=== PATIENT | male | born 1955 | race American Indian/Alaskan Native ===

== ENCOUNTER 2017-10-12 08:32 | Emergency (ER) | payer MEDICARE, OTHER ==
[~2017-10-12] VITALS: Ht 180.3 cm; Wt 81.2 kg
[~2017-10-12 08:32] MED LIST: ACCU-CHEK1 EAC1 MC; ACEROLA C500 MG PO; BABY ASPIRIN81 MG PO; CIPRO500 MG PO; CIPROFLOXACIN500 MG PO; CRESTOR20 MG PO; CRUTCH1 EACH MISC; DILTIAZEM 24HR240 MG PO; FERROUS GLUCON324 M2 PO; FERROUS GLUCON324 MG PO; FLAGYL500 MG PO; GLIPIZIDE XL10 MG PO; GLIPIZIDE XL5 MG PO; HYDROCHLOROTH12.5 M1 PO; HYDROCHLOROTHIA25 MG PO; LIPITOR10 MG PO; LISINOPRIL20 MG PO; METOPROLOL SUCC50 MG PO; NORCO 5-325 TA1 EACH PO; NOVOLOG MI100 UNIT/1 SQ; SIMVASTATIN20 MG PO; SODIUM BICARBO650 MG PO; ULTRAM50 MG PO; VICODIN 5-3001 EACH PO; VITAMIN C500 MG PO; VITAMIN D5000 UNIT PO; ZESTORETIC 20-251 EA PO
[2017-10-12] MEDS ORDERED: BACLOFEN10 MG PO (09:57)
[2017-10-12] MEDS ORDERED: NORCO 5-325 TA1 EACH PO (09:57)
== END 2017-10-12 11:17 | disposition home or self-care (01) ==
LOC: ED 08:32
DX: M54.42 Lumbago with sciatica, left side (principal); M54.41 Lumbago with sciatica, right side; I12.9 Hypertensive chronic kidney disease with stage 1 through stage 4 chronic kidney disease, or unspecified chronic kidney disease; E11.22 Type 2 diabetes mellitus with diabetic chronic kidney disease; N18.9 Chronic kidney disease, unspecified; Z87.891 Personal history of nicotine dependence; Z88.5 Allergy status to narcotic agent; Z79.899 Other long term (current) drug therapy
CPT/HCPCS: 80048; 83735; 85025; 96374; 96375; 99283; J1170; J2405

== ENCOUNTER 2017-10-14 07:25 | Emergency (ER) | payer MEDICARE, OTHER ==
[~2017-10-14] VITALS: Ht 180.3 cm; Wt 81.2 kg
[~2017-10-14 07:25] MED LIST changes: +BACLOFEN10 MG PO
[2017-10-14] MEDS ORDERED: FOLIC ACID1 MG PO (07:41)
[2017-10-14] MEDS ORDERED: DOXAZOSIN MESYLA2 MG PO (07:42)
[2017-10-14] MEDS ORDERED: VITAMIN B-1250 MCG PO (07:44)
[2017-10-14] MEDS ORDERED: CARVEDILOL6.25 MG PO (07:45)
--- NOTE | 2017-10-14 23:17 | EKG ---
[facility] [address] [facility] [place] [address] Signed Normal sinus rhythm Cannot rule out Anterior infarct , age undetermined Abnormal ECG When compared with ECG of 20-FEB-2017 22:31, No significant change was found Confirmed by ОЛЕГ JOHNSON MD ([id number]) on 10/14/2017 11:17:23 PM Electronically Signed By: ОЛЕГ JOHNSON MD 10/14/17 2317 PATIENT NAME: SONPRIYANKASOBEIDA MIRANDA Electrocardiogram DATE OF : 57 PHYSICIAN: ОЛЕГ JOHNSON MD REPORT #: [id number] REPORT IS CONFIDENTIAL AND NOT TO BE RELEASED WITHOUT AUTHORIZATION
== END 2017-10-14 10:45 | disposition home or self-care (01) ==
LOC: ED 07:25
DX: R41.82 Altered mental status, unspecified (principal); E11.22 Type 2 diabetes mellitus with diabetic chronic kidney disease; I12.0 Hypertensive chronic kidney disease with stage 5 chronic kidney disease or end stage renal disease; N18.6 End stage renal disease; Z87.891 Personal history of nicotine dependence; Z99.2 Dependence on renal dialysis; Z79.899 Other long term (current) drug therapy; Z79.84 Long term (current) use of oral hypoglycemic drugs; Z88.5 Allergy status to narcotic agent
CPT/HCPCS: 70450; 71010; 80053; 80176; 81001; 83605; 84484; 85025; 85610; 85730; 93005; 93010; 99284; G0480; J7030

== ENCOUNTER 2017-11-22 12:49 | Emergency (ER) | payer MEDICARE, OTHER ==
[~2017-11-22] VITALS: Ht 180.3 cm; Wt 81.2 kg
[~2017-11-22 12:49] MED LIST changes: +CARVEDILOL6.25 MG PO; +DOXAZOSIN MESYLA2 MG PO; +FOLIC ACID1 MG PO; +VITAMIN B-1250 MCG PO
[2017-11-22] MEDS ORDERED: AMLODIPINE BESY10 MG PO (13:08)
[2017-11-22] MEDS ORDERED: SODIUM BICARBO650 MG PO (13:09)
[2017-11-22] MEDS ORDERED: RENAGEL800 MG PO (13:10)
[2017-11-22] MEDS ORDERED: CELEXA20 MG PO (13:10)
[2017-11-22] MEDS ORDERED: METOPROLOL SUCC25 MG PO (13:11)
[2017-11-22] MEDS ORDERED: BACTRIM DS TAB1 EACH PO (13:14)
== END 2017-11-22 13:22 | disposition home or self-care (01) ==
LOC: ED 12:49
DX: L30.3 Infective dermatitis (principal); I10 Essential (primary) hypertension; E11.9 Type 2 diabetes mellitus without complications; Z88.5 Allergy status to narcotic agent; Z88.8 Allergy status to other drugs, medicaments and biological substances; Z79.899 Other long term (current) drug therapy
CPT/HCPCS: 99283

== ENCOUNTER 2018-06-11 19:14 | Emergency (ER) | payer MEDICARE, OTHER ==
[~2018-06-11 19:14] MED LIST changes: +AMLODIPINE BESY10 MG PO; +BACTRIM DS TAB1 EACH PO; +CELEXA20 MG PO; +METOPROLOL SUCC25 MG PO; +RENAGEL800 MG PO
[2018-06-11] MEDS ORDERED: LOPERAMIDE2 MG PO (23:23)
[2018-06-11] MEDS ORDERED: RENVELA800 MG PO (23:23)
[2018-06-11] MEDS ORDERED: IBUPROFEN600 MG PO (23:24)
--- NOTE | 2018-06-12 08:07 | EKG ---
[facility] [address] [facility] [place] [address] Signed Normal sinus rhythm Normal ECG When compared with ECG of 14-OCT-2017 07:51, No significant change was found Confirmed by AMANDO FERNÁNDEZ MD ([id number]) on 06/12/2018 8:07:17 AM Electronically Signed By: AMANDO FERNÁNDEZ MD 06/12/18 0807 PATIENT NAME: PRIYANKA CLINE Electrocardiogram DATE OF : 57 PHYSICIAN: AMANDO FERNÁNDEZ MD REPORT #: [id number] REPORT IS CONFIDENTIAL AND NOT TO BE RELEASED WITHOUT AUTHORIZATION
== END 2018-06-12 00:24 | disposition short-term general hospital (02) ==
LOC: ED 19:14
DX: K81.0 Acute cholecystitis (principal); E11.9 Type 2 diabetes mellitus without complications; I10 Essential (primary) hypertension; Z88.5 Allergy status to narcotic agent; Z88.8 Allergy status to other drugs, medicaments and biological substances; Z79.899 Other long term (current) drug therapy
CPT/HCPCS: 74176; 76705; 80053; 81001; 83690; 85025; 93005; 93010; 96374; 96375; 96376; 99285; J2270; J2405; J2550

== ENCOUNTER 2019-01-13 06:21 | Emergency (ER) | payer MEDICARE, OTHER ==
[~2019-01-13] VITALS: Ht 180.3 cm; Wt 81.2 kg
[~2019-01-13 06:21] MED LIST changes: +IBUPROFEN600 MG PO; +LOPERAMIDE2 MG PO; +RENVELA800 MG PO; +VITAMIN B-121000 MCG PO; -VITAMIN B-1250 MCG PO
[2019-01-13] MEDS ORDERED: ATORVASTATIN CA10 MG PO (06:39)
[2019-01-13] MEDS ORDERED: CARVEDILOL12.5 MG PO (06:40)
[2019-01-13] MEDS ORDERED: GLIPIZIDE XL2.5 MG PO (06:40)
[2019-01-13] MEDS ORDERED: NEPHRO-VITE RX1 EACH PO (06:42)
--- NOTE | 2019-01-14 16:50 | EKG ---
[facility] [address] [facility] [place] [address] Signed Normal sinus rhythm Normal ECG When compared with ECG of 11-JUN-2018 19:47, No significant change was found Confirmed by JOSE HOUSER DO ([id number]) on 01/14/2019 4:49:53 PM Electronically Signed By: JOSE HOUSER DO 01/14/19 1650 PATIENT NAME: PRIYANKA CLINE Electrocardiogram DATE OF : 57 PHYSICIAN: JOSE HOUSER DO REPORT #: [id number] REPORT IS CONFIDENTIAL AND NOT TO BE RELEASED WITHOUT AUTHORIZATION
== END 2019-01-13 08:30 | disposition home or self-care (01) ==
LOC: ED 06:21
DX: R55 Syncope and collapse (principal); E11.9 Type 2 diabetes mellitus without complications; I10 Essential (primary) hypertension; Z88.5 Allergy status to narcotic agent; Z88.8 Allergy status to other drugs, medicaments and biological substances; Z79.899 Other long term (current) drug therapy
CPT/HCPCS: 71045; 80053; 81001; 84484; 85025; 93005; 93010; 99284-25

== ENCOUNTER 2019-07-13 17:30 | Emergency (ER) | payer MEDICARE, OTHER ==
[~2019-07-13] VITALS: Ht 180.3 cm; Wt 93.4 kg
[~2019-07-13 17:30] MED LIST changes: +ATORVASTATIN CA10 MG PO; +CARVEDILOL12.5 MG PO; +GLIPIZIDE XL2.5 MG PO; +NEPHRO-VITE RX1 EACH PO
== END 2019-07-13 22:01 | disposition home or self-care (01) ==
LOC: ED 17:30
DX: S70.01XA Contusion of right hip, initial encounter (principal); R42 Dizziness and giddiness; Z99.2 Dependence on renal dialysis; I10 Essential (primary) hypertension; E11.9 Type 2 diabetes mellitus without complications; Z87.891 Personal history of nicotine dependence; Z88.5 Allergy status to narcotic agent; Z88.8 Allergy status to other drugs, medicaments and biological substances; Z79.899 Other long term (current) drug therapy; Z79.84 Long term (current) use of oral hypoglycemic drugs
CPT/HCPCS: 36415; 72170; 73700; 80053; 85025; 99284-25

== ENCOUNTER 2019-08-16 02:19 | Emergency (ER) | payer MEDICARE, OTHER ==
[~2019-08-16] VITALS: Ht 180.3 cm; Wt 93.4 kg
== END 2019-08-16 03:39 | disposition home or self-care (01) ==
LOC: ED 02:19
DX: R26.9 Unspecified abnormalities of gait and mobility (principal); E11.40 Type 2 diabetes mellitus with diabetic neuropathy, unspecified; I10 Essential (primary) hypertension; Z99.2 Dependence on renal dialysis; Z87.891 Personal history of nicotine dependence; Z88.5 Allergy status to narcotic agent; Z88.8 Allergy status to other drugs, medicaments and biological substances; Z79.84 Long term (current) use of oral hypoglycemic drugs; Z79.899 Other long term (current) drug therapy
CPT/HCPCS: 99284

== ENCOUNTER 2019-09-20 12:58 | Emergency (ER) | payer MEDICARE, OTHER ==
[~2019-09-20] VITALS: Ht 177.8 cm; Wt 92.5 kg
== END 2019-09-20 16:36 | disposition home or self-care (01) ==
LOC: ED 12:58
DX: M17.11 Unilateral primary osteoarthritis, right knee (principal); I12.9 Hypertensive chronic kidney disease with stage 1 through stage 4 chronic kidney disease, or unspecified chronic kidney disease; E11.22 Type 2 diabetes mellitus with diabetic chronic kidney disease; N18.9 Chronic kidney disease, unspecified; Z95.0 Presence of cardiac pacemaker; Z88.5 Allergy status to narcotic agent; Z88.8 Allergy status to other drugs, medicaments and biological substances; Z79.84 Long term (current) use of oral hypoglycemic drugs; Z79.899 Other long term (current) drug therapy
CPT/HCPCS: 73560; 80053; 83735; 84484; 85025; 99285-25

== ENCOUNTER 2020-03-14 19:05 | Emergency (ER) | payer MEDICARE, OTHER ==
[~2020-03-14] VITALS: Ht 177.8 cm; Wt 92.5 kg
== END 2020-03-14 21:07 | disposition short-term general hospital (02) ==
LOC: ED 19:05
DX: K92.2 Gastrointestinal hemorrhage, unspecified (principal); I10 Essential (primary) hypertension; E11.9 Type 2 diabetes mellitus without complications; Z79.899 Other long term (current) drug therapy
CPT/HCPCS: 80053; 83690; 85025; 85027; 85610; 85730; 86850; 86900; 86901; 86920; 96374; 96376; 99285-25; C9113; J7060

== ENCOUNTER 2022-04-26 15:58 | Emergency (ER) | payer MEDICARE, OTHER ==
[~2022-04-26] VITALS: Ht 177.8 cm; Wt 83.9 kg
--- NOTE | 2022-04-26 21:31 | EKG ---
[facility] [address] [facility] [place] [address] Signed Normal sinus rhythm Nonspecific T wave abnormality Prolonged QT Abnormal ECG When compared with ECG of 15-DEC-2020 12:59, QRS duration has decreased Nonspecific T wave abnormality now evident in Anterior leads Confirmed by AMANDO FERNÁNDEZ MD ([id number]) on 04/26/2022 9:31:22 PM Electronically Signed By: AMANDO FERNÁNDEZ MD 04/26/222130 PATIENT NAME: PRIYANKA CLINE RUTH Electrocardiogram DATE OF : 57 PHYSICIAN: AMANDO FERNÁNDEZ MD REPORT #: [id number] REPORT IS CONFIDENTIAL AND NOT TO BE RELEASED WITHOUT AUTHORIZATION
== END 2022-04-26 17:45 | disposition home or self-care (01) ==
LOC: ED 15:58
DX: I20.8 Other forms of angina pectoris (principal); I12.0 Hypertensive chronic kidney disease with stage 5 chronic kidney disease or end stage renal disease; E11.22 Type 2 diabetes mellitus with diabetic chronic kidney disease; N18.6 End stage renal disease; Z99.2 Dependence on renal dialysis; Z79.899 Other long term (current) drug therapy; Z88.5 Allergy status to narcotic agent; Z88.8 Allergy status to other drugs, medicaments and biological substances
CPT/HCPCS: 36415; 71045; 80053; 83735; 84484; 85025; 93005; 93010

== ENCOUNTER 2022-07-08 00:21 | Emergency (ER) | payer MEDICARE, OTHER ==
[~2022-07-08] VITALS: Ht 177.8 cm; Wt 87.1 kg
[2022-07-08] MEDS ORDERED: ONDANSETRON ODT8 MG PO (01:58)
== END 2022-07-08 02:24 | disposition home or self-care (01) ==
LOC: ED 00:21
DX: K29.00 Acute gastritis without bleeding (principal); S80.01XA Contusion of right knee, initial encounter; E11.22 Type 2 diabetes mellitus with diabetic chronic kidney disease; I12.0 Hypertensive chronic kidney disease with stage 5 chronic kidney disease or end stage renal disease; N18.6 End stage renal disease; Z99.2 Dependence on renal dialysis; W18.30XA Fall on same level, unspecified, initial encounter; Z88.5 Allergy status to narcotic agent; Z88.8 Allergy status to other drugs, medicaments and biological substances; Z79.899 Other long term (current) drug therapy
CPT/HCPCS: 36415; 73560; 80053; 83690; 85025; 96374; 99284-25; A9270; J2405

== ENCOUNTER 2022-07-19 04:42 | Emergency (ER) | payer MEDICARE, OTHER ==
[~2022-07-19] VITALS: Ht 177.8 cm; Wt 87.1 kg
[~2022-07-19 04:42] MED LIST changes: +ONDANSETRON ODT8 MG PO
--- OUTSIDE RECORDS SUMMARY | 2022-07-19 04:50 | XMS ---
PreManage Notification: PRIYANKA CLINE Security Manager Intel Events No recent Security Events currently on file CRITERIA MET - [facility] - 2 Visits in 30 Days CARE PROVIDERS Wojciech Lemus Oss Architect/Leaf Stamper 05/28/2022-Current PHONE: [phone] Shalom Lyman [facility] Current PHONE: Unknown Ortiz has no Care Guidelines for this patient. EZaire VISIT COUNT (12 MO.) [address] [place] [address] TOTAL 4 NOTE: Visits indicate total known visits. ED/UCC VISIT TRACKING (12 MO.) 07/19/2022 04:42 [facility] [place] TYPE: Emergency COMPLAINT: - HIP PAIN 07/08/2022 00:21 [facility] [place] TYPE: Emergency COMPLAINT: - NAUSEA, VOMITING DIAGNOSES: - Fall on same level, unspecified, initial encounter - Acute gastritis without bleeding - Allergy status to other drugs, medicaments and biological substances - End stage renal disease - Contusion of right knee, initial encounter - Dependence on renal dialysis - Hypertensive chronic kidney disease with stage 5 chronic kidney disease or end stage renal disease - Allergy status to narcotic agent - Type 2 diabetes mellitus with diabetic chronic kidney disease - Other assisted (current) drug therapy - Vomiting, unspecified 04/26/2022 15:[address] [facility] [address] [facility] TYPE: Emergency COMPLAINT: - CHEST PAIN DIAGNOSES: - Allergy status to other drugs, medicaments and biological substances - Other forms of angina pectoris - Other terminal makeup operator (current) drug therapy - Allergy status to narcotic agent - Type 2 diabetes mellitus with diabetic chronic kidney disease - Hypertensive chronic kidney disease with stage 5 chronic kidney disease or end stage renal disease - Dependence on renal dialysis - End stage renal disease - Precordial pain 03/18[facility]2022 14:[facility] DIAGNOSES: - Anemia, unspecified - End stage renal disease - Bruises (Non-traumatic) - Contusion of thorax, unspecified, initial encounter - Dependence on renal dialysis INPATIENT VISIT TRACKING (12 MO.) No inpatient visits to display in this time frame [id number]
== END 2022-07-19 08:11 | disposition home or self-care (01) ==
LOC: ED 04:42
DX: M25.551 Pain in right hip (principal); E11.22 Type 2 diabetes mellitus with diabetic chronic kidney disease; I12.9 Hypertensive chronic kidney disease with stage 1 through stage 4 chronic kidney disease, or unspecified chronic kidney disease; N18.9 Chronic kidney disease, unspecified; W19.XXXA Unspecified fall, initial encounter; Z99.2 Dependence on renal dialysis; Z79.899 Other long term (current) drug therapy; Z88.8 Allergy status to other drugs, medicaments and biological substances; Z88.5 Allergy status to narcotic agent
CPT/HCPCS: 73502; A9270

== ENCOUNTER 2022-09-25 11:15 | Emergency (ER) | payer MEDICARE, OTHER ==
[~2022-09-25] VITALS: Ht 177.8 cm; Wt 83.5 kg
[2022-09-25] MEDS ORDERED: HYDROCODON-ACE1 EA10 PO (14:31)
[2022-09-25] MEDS ORDERED: PREDNISONE20 MG PO (14:31)
== END 2022-09-25 14:51 | disposition home or self-care (01) ==
LOC: ED 11:15
DX: M75.52 Bursitis of left shoulder (principal); I12.0 Hypertensive chronic kidney disease with stage 5 chronic kidney disease or end stage renal disease; E11.22 Type 2 diabetes mellitus with diabetic chronic kidney disease; N18.6 End stage renal disease; Z99.2 Dependence on renal dialysis; Z88.8 Allergy status to other drugs, medicaments and biological substances; Z88.5 Allergy status to narcotic agent; Z79.899 Other long term (current) drug therapy
CPT/HCPCS: 73030; 93931; 99284-25

== ENCOUNTER 2022-10-07 13:07 | Emergency (ER) | payer MEDICARE, OTHER ==
[~2022-10-07] VITALS: Ht 177.8 cm; Wt 83.5 kg
[~2022-10-07 13:07] MED LIST changes: +HYDROCODON-ACE1 EA10 PO; +PREDNISONE20 MG PO
--- OUTSIDE RECORDS SUMMARY | 2022-10-07 13:10 | XMS ---
PreManage Notification: PRIYANKA CLINE Security Urologic Nurse Events No recent Security Events currently on file CRITERIA MET - [facility] - 2 Visits in 30 Days CARE PROVIDERS VERONICA CONNOR [facility] Current PHONE: [phone] Wojciech Lemus Transmitter Tester/In Store Banker 08/28/2022-Current PHONE: [phone] Shalom Lyman DO [facility] Current PHONE: Unknown Ortiz has no Care Guidelines for this patient. E.D. VISIT COUNT (12 MO.) 1 [facility] TOTAL 6 NOTE: Visits indicate total known visits. ED/UCC VISIT TRACKING (12 MO.) 10/07/2022 13:08 [facility] [place] TYPE: Emergency COMPLAINT: - L ARM SWELLING/PAIN 09/25/2022 11:16 [facility] [place] TYPE: Emergency COMPLAINT: - WOUND CHECK DIAGNOSES: - Bursitis of left shoulder - Other middle or intermediate school principal (current) drug therapy - End stage renal disease - Allergy status to narcotic agent - Type 2 diabetes mellitus with diabetic chronic kidney disease - Pain in left upper arm - Hypertensive chronic kidney disease with stage 5 chronic kidney disease or end stage renal disease - Essential (primary) hypertension - Allergy status to other drugs, medicaments and biological substances - Dependence on renal dialysis 07/19/2022 04:42 [facility] [place] TYPE: Emergency COMPLAINT: - HIP PAIN DIAGNOSES: - Hypertensive chronic kidney disease with stage 1 through stage 4 chronic kidney disease, or unspecified chronic kidney disease - Pain in right hip - Allergy status to other drugs, medicaments and biological substances - Chronic kidney disease, unspecified - Unspecified fall, initial encounter - Dependence on renal dialysis - Type 2 diabetes mellitus with diabetic chronic kidney disease - Other care home (current) drug therapy - Allergy status to narcotic agent 07/08/2022 00:21 [facility] [place] TYPE: Emergency COMPLAINT: - NAUSEA, VOMITING DIAGNOSES: - Acute gastritis without bleeding - Allergy [...] with diabetic chronic kidney disease - Other middle or intermediate school principal (current) drug therapy - Vomiting, unspecified - Fall on same level, unspecified, initial encounter 04/26/2022 15:[address] [facility] [place] TYPE: Emergency COMPLAINT: - CHEST PAIN DIAGNOSES: - Other forms of angina pectoris - Other middle or intermediate school principal (current) drug therapy - Allergy status to narcotic agent - Type 2 diabetes mellitus with diabetic chronic kidney disease - Hypertensive chronic kidney disease with stage 5 chronic kidney disease or end stage renal disease - Dependence on renal dialysis - End stage renal disease - Precordial pain - Allergy status to other drugs, medicaments and biological substances 03/18/2022 14:[facility] DIAGNOSES: - Anemia, unspecified - End stage renal disease - Bruises (Non-traumatic) - Contusion of thorax, unspecified, initial encounter - Dependence on renal dialysis INPATIENT VISIT TRACKING (12 MO.) No inpatient visits to display in this time frame [id number]
[2022-10-07] MEDS ORDERED: DILTIAZEM ER240 M1 PO (14:08)
[2022-10-07] MEDS ORDERED: CITALOPRAM HBR20 MG PO (14:09)
[2022-10-07] MEDS ORDERED: HYDROCODON-ACE1 EA10 PO (14:35)
[2022-10-07] MEDS ORDERED: COLACE100 MG PO (14:35)
== END 2022-10-07 14:45 | disposition home or self-care (01) ==
LOC: ED 13:07
DX: M75.52 Bursitis of left shoulder (principal); I12.0 Hypertensive chronic kidney disease with stage 5 chronic kidney disease or end stage renal disease; E11.22 Type 2 diabetes mellitus with diabetic chronic kidney disease; N18.6 End stage renal disease; Z99.2 Dependence on renal dialysis; Z88.8 Allergy status to other drugs, medicaments and biological substances; Z88.5 Allergy status to narcotic agent; Z79.899 Other long term (current) drug therapy
CPT/HCPCS: 20610; 99283-25; J3301

== ENCOUNTER 2023-01-28 17:36 | Emergency (ER) | payer MEDICARE, OTHER ==
[~2023-01-28] VITALS: Ht 177.8 cm; Wt 83.3 kg
[~2023-01-28 17:36] MED LIST changes: +ARTHRITIS PAIN150 GM; +CIALIS5 MG PO; +CITALOPRAM HBR20 MG PO; +COLACE100 MG PO; +CYCLOBENZAPRINE10 MG PO; +DILTIAZEM ER240 M1 PO; +LOKELMA5 GM PO; +PANTOPRAZOLE SO40 MG PO; +TORSEMIDE10 MG PO
== END 2023-01-28 19:50 | disposition home or self-care (01) ==
LOC: ED 17:36
DX: S00.83XA Contusion of other part of head, initial encounter (principal); S80.01XA Contusion of right knee, initial encounter; W18.39XA Other fall on same level, initial encounter; I12.0 Hypertensive chronic kidney disease with stage 5 chronic kidney disease or end stage renal disease; E11.22 Type 2 diabetes mellitus with diabetic chronic kidney disease; N18.6 End stage renal disease; Z99.2 Dependence on renal dialysis; Z88.8 Allergy status to other drugs, medicaments and biological substances; Z88.5 Allergy status to narcotic agent; Z88.1 Allergy status to other antibiotic agents; Z79.899 Other long term (current) drug therapy
CPT/HCPCS: 70450; 73560; A9270

== ENCOUNTER 2023-02-03 10:25 | Day surgery (SDC) | payer MEDICARE, OTHER ==
[~2023-02-03] VITALS: Ht 177.8 cm; Wt 81.8 kg
--- NOTE | 2023-02-03 12:26 | NUR ---
02/03/23 1226 Dorothea Parker 1220- PT ARRIVES TO PACU NONAROUSABLE TO STIMULI. RESP EVEN AND UNLABORED. OXYGEN SAT 100% ON 6L VIA MASK. CO2 IN THE MID 40'S. 1224- PT OPENS EYES TO STIMULI. INSTANTLY FALLS BACK TO SLEEP. RESP EVEN AND UNLABORED. OXYGEN SAT 100% ON 6L VIA MASK.
== END 2023-02-03 13:14 | disposition home or self-care (01) ==
LOC: DS 10:25 → OPS 10:25 → DS 12:00 → OPS 12:00
PROVIDERS: ATTEND Specialist
PROC: 079T3ZX Drainage of Bone Marrow, Percutaneous Approach, Diagnostic (ICD-10-PCS; principal; 2023-02-03 12:00)
DX: D75.89 Other specified diseases of blood and blood-forming organs (principal); Z87.891 Personal history of nicotine dependence; E11.51 Type 2 diabetes mellitus with diabetic peripheral angiopathy without gangrene; N18.6 End stage renal disease; E11.22 Type 2 diabetes mellitus with diabetic chronic kidney disease; I12.0 Hypertensive chronic kidney disease with stage 5 chronic kidney disease or end stage renal disease; Z88.5 Allergy status to narcotic agent
CPT/HCPCS: 01112; 80053; 83615; J2001; J2704; J7121

== ENCOUNTER 2023-10-18 03:51 | Emergency (ER) | payer MEDICARE, OTHER ==
[~2023-10-18] VITALS: Ht 177.8 cm; Wt 73.0 kg
--- OUTSIDE RECORDS SUMMARY | 2023-10-18 03:55 | XMS ---
PreManage Notification: PRIYANKA CLINE Security Dental Technology Advisor Events No recent Security Events currently on file CRITERIA MET - [facility] CARE PROVIDERS Marcelina Lemusmarielasai Band Scroll Saw Operator/Resolution Rep 08/28/2023-Current [facility]: [phone] [facility] PHONE: [phone] IQRA MURRAY Internal Medicine: Nephrology Current PHONE: Unknown VERONICA CONNOR Emergency Medicine Current PHONE: [phone] AMEENA MCDERMOTT [facility] Current PHONE: [phone] CHICHI MURCIA Nurse Practitioner: Family Current PHONE: Unknown Shalom Lyman DO [facility] Current PHONE: Unknown MILE ANGUIANO Nurse Practitioner: Family Current PHONE: [phone] Ortiz has no Care Guidelines for this patient. EZaire VISIT COUNT (12 MO.) 5 JULIA Arias [address] Roxy WrightAmy (Darlyn Santizo) TOTAL 8 NOTE: Visits indicate total known visits. ED/UCC VISIT TRACKING (12 MO.) 10/18/2023 03:52 [facility] [address] [place] TYPE: Emergency COMPLAINT: - DIARRHEA 05/07/2023 10:47 [facility] TYPE: Emergency DIAGNOSES: - Dependence on renal dialysis - Heart failure, unspecified - CHEST PAIN 04/23/2023 12:32 [facility] [place] TYPE: Emergency DIAGNOSES: - Chronic kidney disease, stage 4 (severe) - Nausea with vomiting, unspecified - Other specified abnormalities of plasma proteins - NAUSEA VOMITING 04/11/2023 10:40 [facility] [place] TYPE: Emergency COMPLAINT: - VOMITING DIAGNOSES: - Allergy status to narcotic agent - Allergy status to other drugs, medicaments and biological substances - Dependence on renal dialysis - End stage renal disease - Hypertensive chronic kidney disease with stage 5 chronic kidney disease or end stage renal disease - Nausea with vomiting, unspecified - Other manager long term care (current) drug therapy - Type 2 diabetes mellitus with diabetic chronic kidney disease 04/10/2023 20:05 [facility] [place] TYPE: Emergency COMPLAINT: - FOOT PAIN DIAGNOSES: - Allergy status to analgesic agent - Allergy status to narcotic agent - Allergy status to other drugs, medicaments and biological substances - Contusion of right foot, initial encounter - Contusion of right knee, initial encounter - Dependence on renal dialysis - End stage renal disease - Fall on same level from slipping, tripping and stumbling without subsequent striking against object, initial encounter - Hypertensive chronic kidney disease with stage 5 chronic kidney disease or end stage renal disease - Other correction (current) drug therapy - Pain in right knee - Type 2 diabetes mellitus with diabetic chronic kidney disease 03/13/2023 14:55 [facility] [place] TYPE: Emergency COMPLAINT: - RT KNEE PAIN,MOUTH PAIN,VISION ISSUES DIAGNOSES: - Allergy status to narcotic agent - Allergy status to other antibiotic agents - Allergy status to other drugs, medicaments and biological substances - Essential (primary) hypertension - Other manager long term care (current) drug therapy - Pain in right knee - Type 2 diabetes mellitus without complications - Unspecified fall, initial encounter 01/28/2023 17:37 [facility] [place] TYPE: Emergency COMPLAINT: - FALL DIAGNOSES: - Allergy status to narcotic agent - Allergy status to other antibiotic agents - Allergy status to other drugs, medicaments and biological substances - Contusion of other part of head, initial encounter - Contusion of right knee, initial encounter - Dependence on renal dialysis - End stage renal disease - Hypertensive chronic kidney disease with stage 5 chronic kidney disease or end stage renal disease - Other fall on same level, initial encounter - Other correction (current) drug therapy - Type 2 diabetes mellitus with diabetic chronic kidney disease 12/08/2022 12:33 [facility] (Darlyn Santizo) TYPE: Emergency DIAGNOSES: - Pain in left thigh - Knee Pain INPATIENT VISIT TRACKING (12 MO.) 05/07/2023 22:16 [facility] TYPE: Medical Surgical COMPLAINT: - CHF DIAGNOSES: 0. Hypertensive heart and chronic kidney disease with heart failure and with stage 5 chronic kidney disease, or end stage renal disease 1. Hypertensive heart and chronic kidney disease with heart failure and with stage 5 chronic kidney disease, or end stage renal disease 2. Acute on chronic diastolic (congestive) heart failure 3. Acute respiratory failure with hypoxia 4. End stage renal disease 5. Anemia in chronic kidney disease 6. Do not resuscitate 6. Type 2 diabetes mellitus with hyperglycemia 7. Type 2 diabetes mellitus with diabetic chronic kidney disease 7. Type 2 diabetes mellitus with hyperglycemia 8. Type 2 diabetes mellitus with diabetic chronic kidney disease 8. Type 2 diabetes mellitus with diabetic polyneuropathy 9. Type 2 diabetes mellitus with diabetic polyneuropathy 9. Unspecified conjunctivitis 10. Gastro-esophageal reflux disease without esophagitis 10. Unspecified conjunctivitis 11. Gastro-esophageal reflux disease without esophagitis 11. Hyperlipidemia, unspecified 12. Depression, unspecified 12. Hyperlipidemia, unspecified 13. Depression, unspecified 13. Dilated cardiomyopathy 14. Dilated cardiomyopathy 14. Do not resuscitate 15. Dependence on renal dialysis 16. Allergy status to narcotic agent 17. Allergy status to other drugs, medicaments and biological substances 18. long-term (current) use of oral hypoglycemic drugs 19. Other correction (current) drug therapy [email or web address]
[2023-10-18 04:50] LABS: BASOPHILS 0.2 % (0-2); EOSINOPHILS 1.4 % (0-6); HEMATOCRIT 46.9 % (35.0-50.0); LYMPHOCYTES 3.5 % (24-44); MCH 29.3 (27-36); MCV 91.5 fl (81-99); MONOCYTES 6.5 % (0-12); NEUTROPHILS 88.4 % (39-80); PLATELET COUNT 230 K/uL (140-440); RBC 5.13 M/ul (4.3-5.7); RDW 17.8 (10.5-15.0)
[2023-10-18 05:36] LABS: ALBUMIN 4.1 g/dL (3.4-5.0); ALBUMIN/GLOBULIN RATIO 1.14 (1.1-2.4); ANION GAP 19.6 (7-21); BILIRUBIN, TOTAL 0.5 ng/dL (0.2-1.0); BUN/CREATININE RATIO 4.89 (6.0-28.6); CALCIUM 8.6 mg/dL (8.5-10.1); CREATININE, SERUM 6.95 mg/dL (0.70-1.30); POTASSIUM 4.6 mmol/L (3.5-5.1); PROTEIN, TOTAL 7.7 g/dL (6.4-8.2)
[2023-10-18] MEDS ORDERED: ONDANSETRON ODT8 MG PO (06:28)
[2023-10-18] MEDS ORDERED: LOMOTIL TABLET1 EACH PO (06:28)
[2023-10-18 06:55] VITALS: BP 158/80
[2023-10-19 13:32] LABS: C. DIFF TOXIN B GENE TCDB,PCR Not Detected (())
== END 2023-10-18 07:00 | disposition home or self-care (01) ==
LOC: ED 03:51
PROVIDERS: Family Medicine
DX: A08.4 Viral intestinal infection, unspecified (principal); E11.9 Type 2 diabetes mellitus without complications; I10 Essential (primary) hypertension; Z88.5 Allergy status to narcotic agent; Z88.8 Allergy status to other drugs, medicaments and biological substances; Z79.899 Other long term (current) drug therapy
CPT/HCPCS: 36415; 74176; 80053; 83690; 85025; 87493; J2270; J2405; J7030

== ENCOUNTER 2023-11-25 15:50 | Emergency (ER) | payer MEDICARE, OTHER ==
[~2023-11-25] VITALS: Ht 177.8 cm; Wt 72.6 kg
[~2023-11-25 15:50] MED LIST changes: +LOMOTIL TABLET1 EACH PO
[2023-11-25 16:20] LABS: HEMOGLOBIN 11.5 g/dL (12.0-18.0); MCH 29.5 (27-36); MCV 92.3 fl (81-99); PLATELET COUNT 130 K/uL (140-440); RBC 3.91 M/ul (4.3-5.7); RDW 15.8 (10.5-15.0)
[2023-11-25 16:34] LABS: ALBUMIN 3.3 g/dL (3.4-5.0); ALBUMIN/GLOBULIN RATIO 0.87 (1.1-2.4); ANION GAP 12.3 (7-21); BILIRUBIN, TOTAL 0.8 ng/dL (0.2-1.0); BUN/CREATININE RATIO 4.7 (6.0-28.6); CALCIUM 8.7 mg/dL (8.5-10.1); CREATININE, SERUM 4.25 mg/dL (0.70-1.30); LYMPHOCYTES, MANUAL DIFF 3; MONOCYTES, MANUAL DIFF 4; NEUTROPHILS, MANUAL DIFF 93; POTASSIUM 3.3 mmol/L (3.5-5.1); PROTEIN, TOTAL 7.1 g/dL (6.4-8.2)
[2023-11-25 16:36] LABS: LACTIC ACID, BLOOD 1.1 mmol/L (0.4-2.0)
[2023-11-25 17:09] LABS: INFLUENZA B NAA NEGATIVE (NEGATIVE); RESPIRATORY SYNCYTIAL VIR NAA NEGATIVE (NEGATIVE)
[2023-11-25 20:29] VITALS: BP 139/56
== END 2023-11-25 20:10 | disposition short-term general hospital (02) ==
LOC: ED 15:50
PROVIDERS: Emergency Medicine
DX: J10.00 Influenza due to other identified influenza virus with unspecified type of pneumonia (principal); I12.0 Hypertensive chronic kidney disease with stage 5 chronic kidney disease or end stage renal disease; E11.22 Type 2 diabetes mellitus with diabetic chronic kidney disease; N18.6 End stage renal disease; Z20.822 Contact with and (suspected) exposure to COVID-19; Z99.2 Dependence on renal dialysis; Z88.8 Allergy status to other drugs, medicaments and biological substances; Z88.5 Allergy status to narcotic agent; Z79.899 Other long term (current) drug therapy
CPT/HCPCS: 71045; 80053; 83605; 85025; 87502; 96374; 99285-25; A9270; J0692; U0002

== ENCOUNTER 2023-12-20 16:56 | Emergency (ER) | payer MEDICARE, OTHER ==
[~2023-12-20] VITALS: Ht 177.8 cm; Wt 73.0 kg
--- OUTSIDE RECORDS SUMMARY | ~2023-12-20 | XMS | Continuity of Care Document ---
Demographics + + + | Address | [facility] [address] | | | [place] [address] | + + + | Preferred Language | Unknown | + + + | Marital Status | Unknown | + + + | Yarsani Affiliation | Unknown | + + + | Race | or | + + + | Ethnic Group | Unknown | + + + Author + + + | Author | [facility] | + + + | Organization | [facility] | + + + | Address | [address] | | | [place] [address] | + + + | Phone | | + + + Care Team Providers + + + + | Care Perishable Fruit Inspector Name | Role | Phone | + + + + Unavailable | Unavailable | + + + + Unavailable | Unavailable | + + + + Allergies No information. Encounters No information. Functional Status No information. Immunizations No information. Medications No information. Problems + + + + | date | description | facility | + + + + | 2023-11-26 00:39 | Influenza due to | [facility] - | | | unidentified influenza | [place] | | | virus with other | | | | respiratory manifestations | | + + + + | 2023-11-26 00:39 | End stage renal disease | [facility] - | | | | [place] | + + + + Procedures No information. Results/Labs +--------+--------+ +---------+--------+---------+ | test | date | facility | value | unit | notes | +--------+--------+ +---------+--------+---------+ + + | Result panel 1 | + + + + + +-------+---------+ + | POCT | 2023-11-29 | [facility] | 154 | mg/dl | Test results | | GLUCOMETER | 17:21 | Health | | | may be | | | | System - | | | erroneously | | | | [place] | | | low if the | | | | | | | patient is | | | | | | | severely | | | | | | | dehydrated, | | | | | | | severely | | | | | | | hypotensive, | | | | | | | in shock or | | | | | | | in a | | | | | | | hyperglycemi | | | | | | | c-hyperosmol | | | | | | | ar state | | | | | | | (with or | | | | | | | without | | | | | | | ketosis). | | | | | | | Per | | | | | | | manufacture' | | | | | | | s | | | | | | | stipulations | | | | | | | and Federal | | | | | | | | | | | | | | Regulations, | | | | | | | the [employer]re[employer] | | | | | | | glucometer | | | | | | | can not be | | | | | | | used on | | | | | | | patients | | | | | | | with | | | | | | | hematocrits | | | | | | | less than | | | | | | | 15% or | | | | | | | greater than | | | | | | | 65%. | | | | | | | Glucose | | | | | | | testing must | | | | | | | be sent to | | | | | | | the | | | | | | | laboratory | | | | | | | for these | | | | | | | patients. | + + + +-------+---------+ + + + | Result panel 2 | + + + + + +------+---------+ + | POCT | 2023-11-29 | [facility] | 99 | mg/dl | Test results | | GLUCOMETER | 22:42 | Health | | | may be | | | | System - | | | erroneously | | | | [place] | | | low if the | | | | | | | patient is | | | | | | | severely | | | | | | | dehydrated, | | | | | | | severely | | | | | | | hypotensive, | | | | | | | in shock or | | | | | | | in a | | | | | | | hyperglycemi | | | | | | | c-hyperosmol | | | | | | | ar state | | | | | | | (with or | | | | | | | without | | | | | | | ketosis). | | | | | | | Per | | | | | | | manufacture' | | | | | | | s | | | | | | | stipulations | | | | | | | and Federal | | | | | | | | | | | | | | Regulations, | | | | | | | the [employer] | | | | | | | glucometer | | | | | | | can not be | | | | | | | used on | | | | | | | patients | | | | | | | with | | | | | | | hematocrits | | | | | | | less than | | | | | | | 15% or | | | | | | | greater than | | | | | | | 65%. | | | | | | | Glucose | | | | | | | testing must | | | | | | | be sent to | | | | | | | the | | | | | | | laboratory | | | | | | | for these | | | | | | | patients. | + + + +------+---------+ + + + | Result panel 3 | + + + + + +------+---------+ + | POCT | 2023-11-30 | [facility] | 94 | mg/dl | Test results | | GLUCOMETER | 05:16 | Health | | | may be | | | | System - | | | erroneously | | | | [place] | | | low if the | | | | | | | patient is | | | | | | | severely | | | | | | | dehydrated, | | | | | | | severely | | | | | | | hypotensive, | | | | | | | in shock or | | | | | | | in a | | | | | | | hyperglycemi | | | | | | | c-hyperosmol | | | | | | | ar state | | | | | | | (with or | | | | | | | without | | | | | | | ketosis). | | | | | | | Per | | | | | | | manufacture' | | | | | | | s | | | | | | | stipulations | | | | | | | and Federal | | | | | | | | | | | | | | Regulations, | | | | | | | the [employer] | | | | | | | glucometer | | | | | | | can not be | | | | | | | used on | | | | | | | patients | | | | | | | with | | | | | | | hematocrits | | | | | | | less than | | | | | | | 15% or | | | | | | | greater than | | | | | | | 65%. | | | | | | | Glucose | | | | | | | testing must | | | | | | | be sent to | | | | | | | the | | | | | | | laboratory | | | | | | | for these | | | | | | | patients. | + + + +------+---------+ + Social History +--------+ + + | date | description | facility | +--------+ + + Vital Signs No information."
--- OUTSIDE RECORDS SUMMARY | ~2023-12-20 | XMS | Continuity of Care Document ---
Demographics + + + | Address | [facility] [address] | | | [place] [address] | + + + | Preferred Language | Unknown | + + + | Marital Status | Unknown | + + + | Gnosticism Affiliation | Unknown | + + + | Race | or | + + + | Ethnic Group | Unknown | + + + Author + + + | Author | [facility] | + + + | Organization | [facility] | + + + | Address | [address] [facility] [facility] | | | [place] [address] | + + + | Phone | | + + + Care Team Providers + + + + | Care Rehabilitation Worker Name | Role | Phone | + [...] 2023-11-26 00:39 | Influenza due to | [facility] - | | | unidentified influenza | [place] | | | virus with other | | | | respiratory manifestations | | + + + + | 2023-11-26 00:39 | End stage renal disease | [facility] - | | | | [place] [...]
--- OUTSIDE RECORDS SUMMARY | 2023-12-20 17:02 | XMS ---
PreManage Notification: PRIYANKA CLINE Security Employee Communications Specialist Events No recent Security Events currently on file CRITERIA MET - [facility] - 2 Visits in 30 Days CARE PROVIDERS Wojciech Lemus Universal Banker/Weld Lay Out Worker 11/28/2023-Current PHONE: [phone] [facility] 04/11/2023- PHONE: [phone] IQRA MURRAY Internal Medicine: Nephrology Current PHONE: Unknown VERONICA CONNOR Emergency Medicine Current PHONE: [phone] CHICHI MURCIA Nurse Practitioner: Family Current PHONE: Unknown Shalom Lyman DO Family Medicine Current PHONE: Unknown [facility] Clinic/Center: [facility] Current \F\ [facility] PHONE: [phone] MILE ANGUIANO Nurse Practitioner: Family Current PHONE: Unknown Ortiz has no Care Guidelines for this patient. E.DAmy VISIT COUNT (12 MO.) [address] [facility] [address] [facility] [address] [facility] TOTAL 9 NOTE: Visits indicate total known visits. ED/UCC VISIT TRACKING (12 MO.) 12/20/2023 16:56 [facility] [place] TYPE: Emergency COMPLAINT: - FALL 11/25/2023 15:50 [facility] [place] TYPE: Emergency COMPLAINT: - FEVER DIAGNOSES: - Allergy status to narcotic agent - Allergy status to other drugs, medicaments and biological substances - Contact with and (suspected) exposure to COVID-19 - Dependence on renal dialysis - End stage renal disease - Fever, unspecified - Hypertensive chronic kidney disease with stage 5 chronic kidney disease or end stage renal disease - Influenza due to other identified influenza virus with unspecified type of pneumonia - Other retirement (current) drug therapy - Type 2 diabetes mellitus with diabetic chronic kidney disease 10/18/2023 03:52 [facility] [place] TYPE: Emergency COMPLAINT: - DIARRHEA DIAGNOSES: - Allergy status to narcotic agent - Allergy status to other drugs, medicaments and biological substances - Essential (primary) hypertension - Other retirement (current) drug therapy - Type 2 diabetes mellitus without complications - Viral intestinal infection, unspecified - Vomiting, unspecified 05/07/2023 10:47 [facility] [place] TYPE: Emergency DIAGNOSES: - Dependence on renal dialysis - Heart failure, unspecified - CHEST PAIN 04/23/2023 12:32 [facility] [place] TYPE: Emergency DIAGNOSES: - Chronic kidney [...] - Nausea with vomiting, unspecified - Other intermediate teacher (current) drug therapy - Type 2 diabetes [...] or end stage renal disease - Other intermediate teacher (current) drug therapy - Pain in right knee - Type 2 diabetes mellitus with diabetic chronic kidney disease 03/13/2023 14:55 [facility] [place] TYPE: Emergency COMPLAINT: - RT KNEE PAIN,MOUTH PAIN,VISION ISSUES DIAGNOSES: - Allergy status to narcotic agent - Allergy status to other antibiotic agents - Allergy status to other drugs, medicaments and biological substances - Essential (primary) hypertension - Other retirement (current) drug therapy - Pain in right [...] on same level, initial encounter - Other retirement (current) drug therapy - Type 2 diabetes mellitus with diabetic chronic kidney disease INPATIENT VISIT TRACKING (12 MO.) 11/26/2023 00:39 [facility] DIAGNOSES: - End stage renal disease - Influenza due to unidentified influenza virus with other respiratory manifestations - Renal failure 10/26/2023 08:58 [facility] TYPE: Inpatient DIAGNOSES: - Anemia, unspecified - End stage renal disease - Essential (primary) hypertension - Gastro-esophageal reflux disease without esophagitis - Hyperkalemia - Noninfective gastroenteritis and colitis, unspecified 05/07/2023 22:16 [facility] Medical [facility] COMPLAINT: - CHF DIAGNOSES: [...] other drugs, medicaments and biological substances 18. retirement (current) use of oral hypoglycemic drugs 19. Other retirement (current) drug therapy [email or web address]
[2023-12-20 18:26] VITALS: BP 119/54
== END 2023-12-20 18:26 | disposition home or self-care (01) ==
LOC: ED 16:56
DX: S00.03XA Contusion of scalp, initial encounter (principal); S83.91XA Sprain of unspecified site of right knee, initial encounter; W18.30XA Fall on same level, unspecified, initial encounter; N19 Unspecified kidney failure; E11.9 Type 2 diabetes mellitus without complications; I10 Essential (primary) hypertension; Z88.8 Allergy status to other drugs, medicaments and biological substances; Z88.5 Allergy status to narcotic agent; Z79.899 Other long term (current) drug therapy
CPT/HCPCS: 70450; 73560; 99284-25

== ENCOUNTER 2024-05-06 08:02 | Emergency (ER) | payer MEDICARE, OTHER ==
[~2024-05-06] VITALS: Ht 177.8 cm; Wt 74.0 kg
--- OUTSIDE RECORDS SUMMARY | 2024-05-06 08:05 | XMS ---
PreManage Notification: PRIYANKA CLINE Security Pneumatic Drum Sander Events No recent Security Events currently on file CRITERIA MET - PDMP CARE PROVIDERS Marcelina Lemusmarielasai Utility Bill Collection Clerk/Loading Unit Operator Seating 01/27/2024-Current [facility]: [phone] [facility] PHONE: [phone] IQRA MURRAY Internal Medicine: Nephrology Current PHONE: Unknown VERONICA CONNOR Emergency Medicine Current PHONE: [phone] CHICHI MURCIA Nurse Practitioner: Family Current PHONE: Unknown Shalom Lyman DO Family Medicine Current PHONE: Unknown [facility] Clinic/Center: [facility] Current \F\ [facility] PHONE: [phone] MILE ANGUIANO Nurse Practitioner: Family Current PHONE: Unknown [facility] has no Care Guidelines for this patient. E.Deonte VISIT COUNT (12 MO.) 4 [facility] [facility] T[facility] NOTE: Visits indicate total known visits. ED/UCC VISIT TRACKING (12 MO.) 05/06/2024 08:02 JULIA [facility]cl[facility] [place] TYPE: Emergency COMPLAINT: - L SHOULDER PAIN 12/20/2023 16:56 JUL[facility]cl[facility] [place] TYPE: Emergency COMPLAINT: - FALL DIAGNOSES: - Allergy status to narcotic agent - Allergy status to other drugs, medicaments and biological substances - Contusion of scalp, initial encounter - Essential (primary) hypertension - Fall on same level, unspecified, initial encounter - Other terminal manager (current) drug therapy - Pain in right knee - Sprain of unspecified site of right knee, initial encounter - Type 2 diabetes mellitus without complications - Unspecified kidney failure 11/25/2023 15:50 JULIA Mclain [place] TYPE: Emergency [...] with unspecified type of pneumonia - Other skilled nursing (current) drug therapy - Type 2 diabetes mellitus with diabetic chronic kidney disease 10/18/2023 03:52 JUL[facility]cl[facility] [place] TYPE: Emergency COMPLAINT: - DIARRHEA DIAGNOSES: - Allergy status to narcotic agent - Allergy status to other drugs, medicaments and biological substances - Essential (primary) hypertension - Other terminal manager (current) drug therapy - Type 2 diabetes mellitus without complications - Viral intestinal infection, unspecified - Vomiting, unspecified 05/07/2023 10:47 [facility] [place] TYPE: Emergency DIAGNOSES: - Dependence on renal dialysis - Heart failure, unspecified - CHEST PAIN INPATIENT VISIT TRACKING (12 MO.) 11/26/2023 00:39 [facility] [place] TYPE: Medical Surgical DIAGNOSES: - End stage renal disease - Influenza due to unidentified influenza virus with other respiratory manifestations - Renal failure [facility]AGNOSES: - Anemia, unspecified - End stage renal disease - Essential (primary) hypertension - Gastro-esophageal reflux disease without esophagitis - Hyperkalemia - Noninfective gastroenteritis and colitis, unspecified 05/07/2023 22:16 [facility] [place] TYPE: Medical Surgical COMPLAINT: - CHF DIAGNOSES: [...] other drugs, medicaments and biological substances 18. long term care pharmacist (current) use of oral hypoglycemic drugs 19. Other skilled nursing (current) drug therapy [email or web address]
[2024-05-06 10:22] VITALS: BP 173/68
== END 2024-05-06 10:22 | disposition home or self-care (01) ==
LOC: ED 08:02
DX: M25.512 Pain in left shoulder (principal); W18.11XA Fall from or off toilet without subsequent striking against object, initial encounter; I10 Essential (primary) hypertension; E11.9 Type 2 diabetes mellitus without complications; Z88.8 Allergy status to other drugs, medicaments and biological substances; Z88.5 Allergy status to narcotic agent; Z79.899 Other long term (current) drug therapy
CPT/HCPCS: 73030; 99283-25

== ENCOUNTER 2024-06-04 20:57 | Emergency (ER) | payer MEDICARE, OTHER ==
[~2024-06-04] VITALS: Ht 177.8 cm; Wt 69.8 kg
[~2024-06-04 20:57] MED LIST changes: +VITAMIN D3125 MC2 PO
[2024-06-04] MEDS ORDERED: GABAPENTIN100 MG PO (21:09)
[2024-06-04] MEDS ORDERED: METOPROLOL SUCC25 MG PO (21:09)
[2024-06-04] MEDS ORDERED: PROZAC40 MG PO (21:10)
[2024-06-04] MEDS ORDERED: ONDANSETRON HCL4 MG PO (21:10)
[2024-06-04] MEDS ORDERED: diazePAM 10 MG/2 ML SYR IV ONE (22:15)
--- OUTSIDE RECORDS SUMMARY | 2024-06-04 22:21 | XMS ---
PreManage Notification: PRIYANKA CLINE Security Assistant Professor Of Life Sciences Events No recent Security Events currently on file CRITERIA MET - [facility] - [facility] - 2 Visits in 30 Days CARE PROVIDERS Wojciech Lemus Production Control Supervisor/Insulation Estimator 01/27/2024-Current PHONE: [phone] [facility] 04/11/2023-[facility] PHONE: [phone] IQRA MURRAY Internal Medicine: Nephrology Current PHONE: Unknown VERONICA CONNOR Emergency Medicine Current PHONE: [phone] RYAN WHEELER Internal Medicine Current [facility] PHONE: [phone] Shalom Lyman DO Family Medicine Current PHONE: Unknown [facility] Clinic/Center: [facility] Current \F\ [facility] PHONE: [phone] MILE ANGUIANO Nurse Practitioner: Family Current PHONE: Unknown [facility] has no Care Guidelines for this patient. E.Deonte VISIT COUNT (12 MO.) 5 JULIA Barrios [employer] TOTAL 6 NOTE: Visits indicate total known visits. ED/UCC VISIT TRACKING (12 MO.) 06/04/2024 20:58 JUL[facility]cl[facility] [place] TYPE: Emergency COMPLAINT: - URINARY PROBLEMS 05/08/2024 20:27 [facility] [place] TYPE: Emergency DIAGNOSES: - Other specified abnormal findings of blood chemistry - Strain of muscle, fascia and tendon of right hip, initial encounter - Weakness - Fall 05/06/2024 08:02 JUL[facility]cl[facility] [place] TYPE: Emergency COMPLAINT: - L SHOULDER PAIN DIAGNOSES: - Allergy status to narcotic agent - Allergy status to other drugs, medicaments and biological substances - Essential (primary) hypertension - Fall from or off toilet without subsequent striking against object, initial encounter - Other terminal computer operator (current) drug therapy - Pain in left shoulder - Type 2 diabetes mellitus without complications 12/20/2023 16:56 [facility] [place] TYPE: Emergency COMPLAINT: - FALL DIAGNOSES: - Allergy status to narcotic agent - Allergy status to other drugs, medicaments and biological substances - Contusion of scalp, initial encounter - Essential (primary) hypertension - Fall on same level, unspecified, initial encounter - Other terminal computer operator (current) drug therapy - Pain in right [...] with unspecified type of pneumonia - Other terminal computer operator (current) drug therapy - Type 2 diabetes mellitus with diabetic chronic kidney disease 10/18/2023 03:52 [facility]cl[facility] [place] TYPE: Emergency COMPLAINT: - DIARRHEA DIAGNOSES: - Allergy status to narcotic agent - Allergy status to other drugs, medicaments and biological substances - Essential (primary) hypertension - Other usp (current) drug therapy - Type 2 diabetes mellitus without complications - Viral intestinal infection, unspecified - Vomiting, unspecified INPATIENT VISIT TRACKING (12 MO.) 11/26/2023 00:39 [facility] [place] TYPE: Medical Surgical DIAGNOSES: - End stage renal disease - Influenza due to unidentified influenza virus with other respiratory manifestations - Renal failure 10/26/2023 08:58 [facility] TYPE: Inpatient DIAGNOSES: - Anemia, unspecified - End stage renal disease - Essential (primary) hypertension - Gastro-esophageal reflux disease without esophagitis - Hyperkalemia - Noninfective gastroenteritis and colitis, unspecified [email or web address]
[2024-06-04 22:36] LABS: HEMOGLOBIN 12.2 g/dL (12.0-18.0); MCV 88.3 fl (81-99); PLATELET COUNT 151 K/uL (140-440)
[2024-06-04 22:38] LABS: BASOPHILS 0.3 % (0-2); EOSINOPHILS 0.2 % (0-6); HEMATOCRIT 37.9 % (35.0-50.0); LYMPHOCYTES 3.1 % (24-44); MCH 28.5 (27-36); MCHC 32.2 g/dl (30-36); MONOCYTES 6.2 % (0-12); NEUTROPHILS 90.2 % (39-80); RBC 4.29 M/ul (4.3-5.7); RDW 16.7 (10.5-15.0)
[2024-06-04 22:50] LABS: ALBUMIN/GLOBULIN RATIO 0.71 (1.1-2.4); ANION GAP 13.6 (7-21); BILIRUBIN, TOTAL 0.6 ng/dL (0.2-1.0); BUN/CREATININE RATIO 5.64 (6.0-28.6); CALCIUM 8.6 mg/dL (8.5-10.1); CREATININE, SERUM 5.49 mg/dL (0.70-1.30); POTASSIUM 4.6 mmol/L (3.5-5.1); PROTEIN, TOTAL 7.2 g/dL (6.4-8.2)
[2024-06-04] MEDS ORDERED: CEFTRIAXONE/SODIUM CHLORIDE 2 GM/100 ML PIGGYBACK IV ONE (23:15)
[2024-06-04 23:48] LABS: LACTIC ACID, BLOOD 0.9 mmol/L (0.4-2.0)
[2024-06-05] MEDS ORDERED: CEPHALEXIN500 M1 PO (00:55)
[2024-06-05] MEDS ORDERED: CALCIUM CARBONATE 500 MG CHEW PO ONE (01:00)
[2024-06-05] MEDS ORDERED: ACETAMINOPHEN 325 MG TAB PO ONE (01:15)
[2024-06-05 01:23] VITALS: BP 159/61
== END 2024-06-05 01:23 | disposition home or self-care (01) ==
LOC: ED 20:57
PROVIDERS: Internal Medicine
DX: R30.0 Dysuria (principal); I12.0 Hypertensive chronic kidney disease with stage 5 chronic kidney disease or end stage renal disease; E11.22 Type 2 diabetes mellitus with diabetic chronic kidney disease; N18.6 End stage renal disease; Z88.8 Allergy status to other drugs, medicaments and biological substances; Z88.5 Allergy status to narcotic agent; Z79.899 Other long term (current) drug therapy; Z99.2 Dependence on renal dialysis
CPT/HCPCS: 36415; 80053; 83605; 85025; A9270; J0696

== ENCOUNTER 2025-07-29 15:44 | Emergency (ER) | payer MEDICARE, OTHER ==
[~2025-07-29] VITALS: Ht 177.8 cm; Wt 82.2 kg
[~2025-07-29 15:44] MED LIST changes: +CEPHALEXIN500 M1 PO; +GABAPENTIN100 MG PO; +LIDODERM1 EACH TOP; +ONDANSETRON HCL4 MG PO; +PROZAC40 MG PO; +VOLTAREN ARTHRI20 GM TOP
[2025-07-29] MEDS ORDERED: ATORVASTATIN CA40 MG PO (16:04)
[2025-07-29] MEDS ORDERED: ACETAMINOPHEN 500 MG TAB PO ONE (17:45)
[2025-07-29 20:00] VITALS: BP 169/85
== END 2025-07-29 20:00 | disposition home or self-care (01) ==
LOC: ED 15:44
DX: S40.012A Contusion of left shoulder, initial encounter (principal); E11.9 Type 2 diabetes mellitus without complications; I10 Essential (primary) hypertension; W18.30XA Fall on same level, unspecified, initial encounter; Z99.2 Dependence on renal dialysis; Z88.8 Allergy status to other drugs, medicaments and biological substances; Z79.899 Other long term (current) drug therapy; Z88.5 Allergy status to narcotic agent
CPT/HCPCS: 73030; 99283; A9270